=== PATIENT | male | born 1995 | race Caucasian/White ===

== ENCOUNTER → 2024-09-30 | Outpatient (CLI) | payer OTHER | LOC: M RAD 12:26 | PROVIDERS: ATTEND Orthopaedic Surgery | DX: D16.00 Benign neoplasm of scapula and long bones of unspecified upper limb (principal) ==

== ENCOUNTER 2024-10-05 06:15 | Inpatient (IN) | payer OTHER ==
[~2024-10-05] VITALS: Ht 167.6 cm; Wt 80.8 kg
[2024-10-05] MEDS: TRANEXAMIC ACID 100 MG/ML 10ML VIAL IV ONE (06:00)
[2024-10-05] MEDS ORDERED: ceFAZolin SOD 2 GM IV ONCE IV ONE (06:55)
[2024-10-05] MEDS ORDERED: fentaNYL 250 MCG/5 ML INJECTION As Ordered ONE (06:59)
[2024-10-05] MEDS ORDERED: LIDOCAINE 2% 100MG/5ML SDV (FOR ANES.) As Ordered ONE (06:59)
[2024-10-05] MEDS ORDERED: ROCURONIUM BROMIDE 50MG/5ML VIAL As Ordered ONE (06:59)
[2024-10-05] MEDS ORDERED: propofoL 200 MG/20 ML VIAL As Ordered ONE (06:59)
[2024-10-05] MEDS ORDERED: MIDAZOLAM INJ 2MG/2ML VIAL As Ordered ONE (07:00)
[2024-10-05] MEDS: LR 1,000 ML IV SCH (07:19)
[2024-10-05] MEDS: ceFAZolin SOD 2 GM in IV 1 EA IV ONE (08:09)
[2024-10-05] MEDS: BUPivacaine LIPOSOME/PF 266MG 20ML VIAL (13.3MG/ML)(EXPAREL) As Ordered ONE (08:24)
[2024-10-05] MEDS: TRANEXAMIC ACID 100 MG/ML 10ML VIAL As Ordered ONE (08:45)
[2024-10-05] MEDS ORDERED: HYDROmorphone HCL 2MG/ML 1ML VIAL As Ordered ONE (10:04)
[2024-10-05] MEDS ORDERED: ACETAMINOPHEN 1000MG/100ML IV BAG As Ordered ONE (10:05)
[2024-10-05] MEDS ORDERED: SUGAMMADEX SODIUM 500 MG/5 ML VIAL (BRIDION) As Ordered ONE (10:11)
[2024-10-05] MEDS ORDERED: LR 1,000 ML IV SCH (10:35)
[2024-10-05] MEDS ORDERED: ONDANSETRON 4MG 2ML VIAL IV PRN (10:35)
[2024-10-05] MEDS ORDERED: fentaNYL 100 MCG/2 ML INJECTION IV PRN (10:35)
[2024-10-05] MEDS: HYDROMORPHONE HCL 0.5 MG/ 0.5 ML SYRINGE IV PRN (11:01)
[2024-10-05] MEDS: oxyCODONE 5MG TAB PO PRN (11:07)
[2024-10-05 11:50] VITALS: BP 132/75; TEMP 98; O2SAT 98
== END 2024-10-05 12:10 | disposition home or self-care (01) | DRG 494 ==
LOC: M OR 06:15 → EDSTATUS 09:45
PROVIDERS: ADMIT Orthopaedic Surgery; ATTEND Orthopaedic Surgery
PROC: 0PBC0ZZ Excision of Right Humeral Head, Open Approach (ICD-10-PCS; principal; 2024-10-05 08:00)
DX: D16.01 Benign neoplasm of scapula and long bones of right upper limb (principal); Z79.899 Other long term (current) drug therapy